=== PATIENT | female | born 1990 | race Caucasian/White ===

== ENCOUNTER 2020-01-19 19:29 | Emergency (ER) | payer OTHER ==
[~2020-01-19] VITALS: Ht 162.6 cm; Wt 106.6 kg
[~2020-01-19 19:29] MED LIST: [UNRECOGNIZED DRUG - OTHER] PO
--- OUTSIDE RECORDS SUMMARY | 2020-01-19 19:31 | XMS REPORT ---
Author Author [facility] Organization [facility] Address Unknown Phone Unavailable Care Team Providers Care Maintenance Clerk Name Role Phone Unavailable Unavailable Problems This patient has no known problems. Allergies, Adverse Reactions, Alerts This patient has no known allergies or adverse reactions. Medications This patient has no known medications. Results Test Description Test Time Test Comments Text Results Atomic Results Result Comments BREAST ULTRASOUND LEFT 2019-03-22 08:17:57 - DOLORES AST ULTRASOUND LEFTULTRASOUND OF LEFT BREAST AND LEFT AXILLA: 03/22/2019CLINICAL: Left breast lump. No prior exams were available for comparison. Color flow, real-time, and Doppler ultrasound of the left breast and axilla were performed. Ford scale images of the real-time examination were reviewed. No abnormalities were seen sonographically in the left breast or the left axilla. IMPRESSION: NEGATIVE There is no sonographic evidence of malignancy. Begin screening mammography at age 40 per current ACR guidelines. Sabas Reyes M.D. et/:03/22/2019 08:17:57 Production Generalist: Yue GARCIA, [facility]-FWletter sent: BIRADS 1-2 Normal Ultrasound BI-RADS: 1 Negative
--- OUTSIDE RECORDS SUMMARY | 2020-01-19 19:31 | XMS REPORT | Clinical Summary ---
Author Author [facility] Organization [facility] Address Unknown Phone Unavailable Care Team Providers Care Atlassian Administrator Name Role Phone Chema [place] MD PCP Allergies Comments Active Allergy Reactions Severity Noted Date No Known Drug Allergies 07/28/2017 Medications End Date Status Medication Sig Dispensed Refills Start Date Active cholecalciferol, vitamin Take 2,000 0 D3, (VITAMIN D3) 2,000 Units by unit capsule capsule mouth daily. Active liothyronine (CYTOMEL) 5 Take 5 mcg by 0 MCG tablet mouth daily. Active escitalopram (LEXAPRO) 10 0 //201 MG tablet 9 Active nitrofurantoin, 0 macrocrystal-monohydrate, 9 (MACROBID) 100 MG capsule 08/31/2020 Active norgestimate-ethinyl Take 1 tablet 28 tablet 11 estradiol (ORTHO by mouth 9 TRI-CYCLEN) daily. 0.18/0.215/0.25 mg-35 mcg (28) per tablet 09/01/2019 Discontinued folic acid 2.5 mg + B6 25 Take 1 tablet 0 mg + B12 2 mg (FOLBIC) by mouth 2.5-25-2 mg tablet daily. Active Problems No known active problems Encounters Care Team Description Date Type Specialty Joana Carlos MA 10/13/2019 Telephone Obstetrics and Gyne cology Unique Gallagher MA 09/01/2019 Refill Obstetrics and Gyne cology Sierra Sexton MD 07/13/2019 Telephone Obstetrics and Gyne cology Pastora Waters MA 07/11/2019 Telephone Obstetrics and Gyne cology Sierra Sexton MD 07/11/2019 Telephone Obstetrics and Gyne cology Sierra Sexton MD Cervical smear, as part of routine gynec ological examination (Primary Dx); Screening for STDs (sexually transmitted diseases) 06/29/2019 Office Visit Obstetrics and Gyne cology after 01/18/2019 Immunizations Name Administration Dates Next Due HPV Quadrivalent 05/14/2009, 02/12/2008, 09/2007 Family History Medical History Relation Name Comments Breast cancer Maternal Aunt Relation Name Status Comments Maternal Aunt Social History Date Tobacco Use Types Packs/Day Years Used Never Smoker Smokeless Tobacco: Never Used Drinks/Week oz/Week Comments Alcohol Use social Yes Sex Assigned at Date Recorded Not on file Industry Job Start Date Occupation Not on file Not on file Not on file Travel End Travel History Travel Start No recent travel history available. Last Filed Vital Signs Reading Time Taken Comments Vital Sign 124/86 06/29/2019 8:30 AM CDT Blood Pressure 88 06/29/2019 8:30 AM CDT Pulse - - Temperature - - Respiratory Rate - - Oxygen Saturation - - Inhaled Oxygen Concentration 103 kg (226 lb) 06/29/2019 8:30 AM CDT Weight 162.6 cm (5' 4") 06/29/2019 8:30 AM CDT Height 38.79 06/29/2019 8:30 AM CDT Body Mass Index Plan of Treatment Health Maintenance Due Date Last Done Comments INFLUENZA VACCINE 04/13/2020 CERVICAL CANCER SCREENING 06/29/2022 06/29/2019, 05/17/2018, 05/06/2017 Procedures Comments Procedure Name Priority Date/Time Associated Diag nosis HIV 1/2 ANTIGEN/ANTIBODY, Routine 06/29/2019 FOURTH GENERATION W/RFL 9:17 AM CDT (REFLEX [facility]) HEPATITIS B SURFACE Routine 06/29/2019 Screening for STDs ANTIGEN 9:17 AM CDT (sexually transmitt ed diseases) HEPATITIS C ANTIBODY Routine 06/29/2019 Screening for STDs 9:17 AM CDT (sexually transmitted diseases) RPR SCREEN Routine 06/29/2019 Screening for S TDs 9:17 AM CDT (sexually transmitted diseases) HPV MRNA E6/E7 Routine 06/29/2019 9:12 AM CDT CHLAMYDIA/N. GONORRHOEAE Routine 06/29/2019 RNA, TMA 9:12 AM CDT THINPREP TIS PAP REFLEX Routine 06/29/2019 HPV MRNA E6/E7 9:12 AM CDT after 01/18/2019 Results * HIV 1/2 ANTIGEN/ANTIBODY, FOURTH GENERATION W/RFL (REFLEX [facility]) (06/29/2019 9:17 AM CDT) HIV AG/AB 4th NON-REACTIVE NON-REACTIVE [facility] gen Comment: DIAGNOSTICS HIV-1 antigen and HIV-1/HIV-2 DECATUR antibodies were not detected. There is no laboratory evidence of HIV infection. PLEASE NOTE: This information has been disclosed to you from records whose confidentiality may be protected by state law. If your state requires such protection, then the state law prohibits you from making any further disclosure of the information without the specific written consent of the person to whom it pertains, or as otherwise permitted by law. A general authorization for the release of medical or other information is NOT sufficient for this purpose. For additional information please refer to http://education.Vatler.com/faq/EJC494 (This link is being provided for informational/ educational purposes only.) The performance of this assay has not been clinically validated in patients less than 2 years old. Specimen Narrative Performed At FASTING:YES [facility] AN UPDATE OR CORRECTION HAS BEEN MADE T O FASTING: YES Resulting Agency Comment Performing Organization Information: Site ID: [id number] [facility]: [facility] Address: [address] [place] [phone] Director: Nemesio Dockery Performing Organization Address City/State/[facility] one Number [facility] [address] [address] * Hepatitis C antibody (06/29/2019 9:17 AM CDT) Hepatitis C Ab NON-REACTIVE NON-REACTIVE [employer] [place] Signal/cutoff 0.04 <1.00 [facility] Comment: DIAGNOSTICS HCV antibody was non-reactive. DECATUR There is no laboratory evidence of HCV infection. In most cases, no further action is required. However, if recent HCV exposure is suspected, a test for HCV RNA (test code 65871) is suggested. For additional information please refer to http://education.Vatler.com/faq/AAE90l2 (This link is being provided for informational/ educational purposes only.) Specimen Blood Narrative Performed At FASTING:YES [facility] AN UPDATE OR CORRECTION HAS BEEN MADE T O FASTING: YES Resulting Agency Comment Performing Organization Information: Site ID: [id number] Name: [facility] Address: [address] [place], [place] [id number] Director: Nemesio Dockery Performing Organization Address [facility] one Number [facility] [email or web address] [place] [address] * RPR screen (06/29/2019 9:17 AM CDT) Pathologist [facility] RPR (monitor) NON-REACTIVE NON-REACTIVE [facility] w/refl titer DIAGNOSTICS DECATUR Specimen Blood Narrative Performed At FASTING:YES [facility] AN UPDATE OR CORRECTION HAS BEEN MADE T O FASTING: YES Resulting Agency Comment Performing Organization Information: Site ID: [id number] Name: [facility] Address: [address] [place] [address] Director: Nemesio Dockery Performing Organization Address [facility] one Number [facility] [employer] [place] [address] * Hepatitis B surface antigen (06/29/2019 9:17 AM CDT) Pathologist [facility] Hepatitis B NON-REACTIVE NON-REACTIVE [facility] surface Ag DIAGNOSTICS [place] Specimen Blood Narrative Performed At FASTING:YES [facility] AN UPDATE OR CORRECTION HAS BEEN MADE T O FASTING: YES Resulting Agency Comment Performing Organization Information: Site ID: [id number] Name: [facility] Address: [address] [place] [phone] Director: Nemesio Dockery Performing Organization Address [facility] one Number [facility] [employer] [place] [address] * HPV mRNA E6/E7 (06/29/2019 9:12 AM CDT) Pathologist [facility] HPV mRNA e6/e7 Detected (A) Not Detected [facility] Comment: DIAGNOSTICS-DYLAN This test was performed using ING II the APTIMA HPV Assay ([employer] This assay detects E6/E7 viral messenger RNA (mRNA) from 14 high-risk HPV types (16,18,31,33,35,39,45,51,52,56 ,58,59,66,68). The analytical performance characteristics of this assay have been determined by [facility]. The modifications have not been cleared or approved by the FDA. This assay has been validated pursuant to the CLIA regulations and is used for clinical purposes. Specimen Resulting Agency Comment Performing Organization Information: Site ID: [id number] [facility]: [facility] Address: [address] [place] [phone] Director: Dr. Nemesio Dockery Performing Organization Address [facility] one Number [email or web address] [address] II * CHLAMYDIA/N. GONORRHOEAE RNA, TMA (06/29/2019 9:12 AM CDT) Chlamydia NOT DETECTED NOT DETECTED [facility] trachomatis DIAGNOSTICS-DYLAN RNA, TMA ING II Neisseria NOT DETECTED NOT DETECTED [facility] gonorrhoeae DIAGNOSTICS-DYLAN RNA, TMA ING II (Always Comment: [facility] message) This test was performed using Moodswing TICS-DYLAN the APTIMA COMBO2 Assay ING II ([employer] The analytical performance characteristics of this assay, when used to test SurePath specimens have been determined by [facility]. Specimen Resulting Agency Comment Performing Organization Information: Site ID: [id number] [facility]: [facility] Address: [address] [place] [phone] Director: Dr. Nemesio Dockery Performing Organization Address [facility] one Number [email or web address] [address] II * THINPREP TIS PAP REFLEX HPV mRNA E6/E7 (06/29/2019 9:12 AM CDT) Clinical None given [facility] information Date of last NONE GIVEN [facility] menstrual period Prev. pap: NONE GIVEN [facility] Prev. bx: NONE GIVEN [facility] Source None given [facility] Statement of Comment: [facility] adequacy Satisfactory for evaluation . Endocervical/transformation zone component present. Age and/or menstrual status not provided General (A)Comment: EPITHELIAL CELL [facility] categorization ABNORMALITY Interpretation/ (A) [facility] result: Comment: Atypical Squamous Cells of Undetermined Significance (ASC-US) Comment Comment: TORI This Pap test has been evaluated with computer assisted technology. Suggest clinical correlation and follow-up as clinically appropriate Cytotechnologis Comment: TORI verónica AMT, CT(ASCP) CT screening location: [place] [address] [address], [facility] [address] Pathologist Comment: TORI Ha Pablo M.D. Board Certified in Anatomic and Clinical Pathology [phone] (electronic signature) Comment Comment: TORI EXPLANATORY NOTE: The Pap is a screening test for cervical cancer. It is not a diagnostic test and is subject to false negative and false positive results. It is most reliable when a satisfactory sample, regularly obtained, is submitted with relevant clinical findings and history, and when the Pap result is evaluated along with historic and current clinical information. Specimen Resulting Agency Comment Performing Organization Information: Site ID: [id number] Name: [facility] Address: [address] [place] [address], [address] [place] [address] Director: Rika Forte MD,PhD Performing Organization Address City/State/[facility] Ph one Number [facility] after 01/18/2019 Insurance Type Payer Benefit Subscriber ID Effective Phone Address Plan / Dates Group PPO CIGNA CIGNA PPO xxxxxxxxxxx 2017-P radha (Work) Advance Directives For more information, please contact: [phone] Patient Massage Coordinator Explanation Type Date Recorded Advance Directives, Living Will and Medical Power of Director [facility]
--- OUTSIDE RECORDS SUMMARY | 2020-01-19 19:32 | XMS REPORT | Summary of Care ---
Author Author [facility] - Health Organization [facility] - Health Address Unknown Phone Unavailable Care Team Providers Care Electrical Development Engineer Name Role Phone Chema Daven[place] PCP Encounter Details Care Team Description Date Type Department Tami Phillips, CLINICAL RESEARCHER [address] [place] [address] 10/24/2019 Letter (Out) [facility]-Emergency Depar tment [address] [place] [address] Allergies No Known Allergiesdocumented as of this encounter (statuses as of 10/24/2019) Medications End Date Status Medication Sig Dispensed Refills Start Date 10/29/2019 Active naproxen 500 mg Take 1 tablet 14 tablet 0 10/22/19 2 tabletIndications: Strep by mouth 2 0 pharyngitis (two) times daily with meals for 7 days. documented as of this encounter (statuses as of 10/24/2019) Active Problems Not on filedocumented as of this encounter (statuses as of 10/24/2019) Social History Date Tobacco Use Types Packs/Day Years Used Never Assessed Sex Assigned at Date Recorded Not on file Industry Job Start Date Occupation Not on file Not on file Not on file Travel End Travel History Travel Start No recent travel history available. documented as of this encounter Last Filed Vital Signs Not on filedocumented in this encounter Plan of Treatment Health Maintenance Due Date Last Done Comments VARICELLA VACCINES (1 of 1993 2 - 2-dose childhood series) DTaP,Tdap,and Td Vaccines 2003 (1 - Tdap) PAP SMEAR 2013 INFLUENZA VACCINE (#1) 2019 PNEUMOCOCCAL 0-64 YEARS Aged Out No longer elig ible based COMBINED SERIES on patient's age to complete this topic documented as of this encounter Results Not on filedocumented in this encounter Insurance Type Payer Benefit Subscriber ID Effective Phone Address Plan / Dates Group HMO/PPO/POS [place] [id number] 2019-P GENERIC resent documented as of this encounter
--- OUTSIDE RECORDS SUMMARY | 2020-01-19 19:32 | XMS REPORT | Summary of Care ---
Author Author [facility] - Health Organization [facility] - Health Address Unknown Phone Unavailable Care Team Providers Care Private Client Advisor Name Role Phone Chema Davenport PCP Reason for Visit * Reason Comments Sore Throat * Auth/Cert Referred By Contact Referred To Contact Status Reason Specialty Diagnoses / Procedures [facility] Emergency Dept [address] [place] [address] Emergency Medicine Encounter Details Care Team Description Date Type Department Tami Phillips FNP [address] [place] [address] Sore throat (Primary Dx); Strep pharyngitis 10/22/[address] [facility]-Emergency Depar tment [address] [place] [address] Allergies No Known Allergiesdocumented as of this encounter (statuses as of 10/22/2019) Medications End Date Status Medication Sig Dispensed Refills Start Date 10/29/2019 Active naproxen 500 mg Take 1 tablet 14 tablet 0 10/22/19 2 tabletIndications: Strep by mouth 2 0 pharyngitis (two) times daily with meals for 7 days. documented as of this encounter (statuses as of 10/22/2019) Active Problems Not on filedocumented as of this encounter (statuses as of 10/22/2019) Social History Date Tobacco Use Types Packs/Day Years Used Never Assessed Sex Assigned at Date Recorded Not on file Industry Job Start Date Occupation Not on file Not on file Not on file Travel End Travel History Travel Start No recent travel history available. 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 Sore throat J02.9 462 2. Strep pharyngitis J02.0 034.0 NO LIFE-THREATENING FINDINGS ON TODAY'S EXAM. YOUR PRESCRIPTIONS : Medication List START taking these medications naproxen 500 mg tablet Commonly known as: NAPROSYN Take 1 tablet by mouth 2 (two) times daily with meals for 7 days. Where to Get Your Medications You can get these medications from any pharmacy Bring a paper prescription for each of these medications naproxen 500 mg tablet ER precautions and follow up : 1. Return to ER if your symptoms should worsen or fail to improve within 72 luis rs. 2. The care provided in the emergency room was for acute problems only. 3. You should follow up with your primary care provider within 72 hours. 4. Fill and take all your medications as prescribed. 5. Make sure you are staying adequately hydrated. Busque attencion immediatamente si usted tiene los sitomas sigue, vuelve peor o si hay sitomas nuevas o para cualquiera preoccupacion incluyendo dolor del pecho , falta aire, se siente debile, mas fievre, mas dolor, nausea, vomitando, sangra ndo que no es normal, confusion, baja or pierdas conciencia. FOLLOW-UP RECOMMENDATIONS: RECOMMEND FOLLOW-UP WITH A PRIMARY CARE PROVIDER OR SPECIALIST IN 2-5 DAYS, DAWN CIALLY IF NO IMPROVEMENT IN SYMPTOMS. MAY FOLLOW-UP WITH A PROVIDER OF YOUR CHOICE, SUCH : 1. A PHYSICIAN OF YOUR CHOICE 2. [facility], . LOCATIONS IN [facility] 3. [facility], [address] [place], [place]; [phone] 1 OR, IF YOU WISH TO FOLLOW-UP WITHIN THE [facility], MAY TRY THESE OP TIONS (CLINIC APPOINTMENTS AVAILABLE ON UNDP-RM-SYCU BASIS): 1. SCHEDULE AN APPOINTMENT ONLINE AT WWW.[facility] 2. OR CALL THE [facility] ACCESS CENTER AT OR 3. OR CALL YOUR [facility] PHYSICIAN'S OFFICE DIRECTLY IF YOU ARE ALREADY AN ESTABLISH ED [facility] PATIENT. 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 CULTURE LAB STAT Sore throat Order Schedule Name Type Priority Associated Diag noses ONCE for 1 Occurrences starting 10/22/19 20 until 10/22/2019 THROAT CULTURE LAB Routine Sore throat Health Maintenance Due Date Last Done Comments VARICELLA VACCINES (1 of 1993 2 - 2-dose childhood series) DTaP,Tdap,and Td Vaccines 2003 (1 - Tdap) PAP SMEAR 2013 INFLUENZA VACCINE (#1) 2019 PNEUMOCOCCAL 0-64 YEARS Aged Out No longer elig ible based COMBINED SERIES on patient's age to complete this topic documented as of this encounter Procedures Comments Procedure Name Priority Date/Time Associated Diag nosis POCT TEST SAMANTHA 10/22/2019 Sore throa t 9:37 AM 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 ADC,CLC OR LCC ONLY - STAT 10/22/2019 Sore thr oat INFLUENZA A & B DIRECT 9:13 AM 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 ANTIGEN RAPID STREP SCREEN FOR STAT 10/22/2019 Sore th roat GROUP A 9:13 AM 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 documented in this encounter Results * POCT TEST (10/22/2019 9:37 AM 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) POCT PREG neg On board visible controls acceptable with C Line POCT PREG LOT # [id number] POCT PREG TEST apr 2021 DATE Specimen Urine - URINE, CLEAN CATCH * ADC,CLC OR LCC ONLY - INFLUENZA A & B DIRECT ANTIGEN (10/22/2019 9:13 AM 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) Influenza A Negative Negative [facility] Influenza B Negative Negative [facility] Specimen Swab - NARE, LEFT SIDE Performing Organization Address [facility] Ph one Number [facility] CLIA: [id number], [facility] [place], [place] [address] [facility] * RAPID STREP SCREEN FOR GROUP A (10/22/2019 9:13 AM 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) Streptococcus Negative Negative [facility] pyogenes (group [facility] A) antigen [facility] Specimen Swab - THROAT Performing Organization Address [facility] Ph one Number [facility] CLIA: [id number], [address] [place], [place] [address] [facility] documented in this encounter Visit Diagnoses Diagnosis Sore throat - Primary Acute pharyngitis Strep pharyngitis Streptococcal sore throat documented in this encounter Administered Medications Action Date Dose Rate Site Medication Order MAR Action 10/22/2019 9:48 AM 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 10 mg Right Do rsogluteal-IM dexamethasone (DECADRON PHOSPHATE) Given injection 10 mg 10 mg, Oral, ONCE, 1 dose, 10/22/19 a t 1030, Routine 10/22/2019 9:48 AM 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 800 mg ibuprofen (IBU) tablet 800 mg Given 800 mg, Oral, ONCE, 1 dose, 10/22/19 at 1030, SAMANTHA 10/22/2019 9:48 AM 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 1.2 Million Units Left D orsogluteal-IM penicillin g benzathine (BICILLIN L-A) Given injection 1.2 Million Units 1.2 Million Units, Intramuscular, ONCE, 1 dose, 10/22/19 at 1030, SAMANTHA, Reaso n for Anti-Infective: Documented Infection, Documented Infection Site: HEENT, Duration of Therapy: 7 days documented in this encounter Insurance Type Payer Benefit Subscriber ID Effective Phone Address Plan / Dates Group HMO/PPO/POS [place] [id number] 2019-P GENERIC resent documented as of this encounter
[2020-01-19] MEDS ORDERED: ACETAMINOPHEN 325 MG TAB PO STA (19:58)
[2020-01-19] MEDS ORDERED: SODIUM CHLORIDE 0.9% 1000ML 1,000 ML IV STA (19:58)
[2020-01-19] MEDS ORDERED: CEFEPIME HCL 1 GM VIAL IV STA (20:04)
[2020-01-19] MEDS ORDERED: CEFEPIME 1GM/NS 0.9% 50 ML 50 ML IV ONE ×2 (20:15)
[2020-01-19 20:28] LABS: BILIRUBIN,URINE NEGATIVE (NEGATIVE); CLARITY,URINE SL CLOUDY (CLEAR); COLOR,URINE YELLOW (YELLOW); KETONES,URINE NEGATIVE (NEGATIVE); LEUKOCYTE ESTERASE ,URINE NEGATIVE (NEGATIVE); NITRITE,URINE NEGATIVE (NEGATIVE); PROTEIN,URINE DIPSTICK 1+ (NEGATIVE); URINE UROBILINOGEN 0.2 mg/dL (0.2 - 1)
[2020-01-19 20:29] LABS: PREGNANCY TEST, URINE NEGATIVE (NEGATIVE)
[2020-01-19 20:36] LABS: BASOPHILS % 0.5 % (0.0-1.0); EOSINOPHILS # (AUTO) 0.1 (0.0-0.4); EOSINOPHILS % 1.1 % (0.0-6.0); HEMATOCRIT 36.9 % (34.2-44.1); HEMOGLOBIN 11.6 g/dL (12.0-16.0); LYMPHOCYTES # (AUTO) 1.9 (1.0-3.2); MEAN CORPUSCULAR HGB CONC 31.4 g/dL (31-35); MONOCYTES # (AUTO) 0.7 (0.2-0.8); MONOCYTES % 10.9 % (4.4-11.3); NEUTROPHILS # (AUTO) 3.5 (2.1-6.9); NEUTROPHILS % 56.3 % (38.7-80.0); PLATELET COUNT 288 x10e3/uL (140-360); RED BLOOD COUNT 4.29 x10e6/uL (3.6-5.1); RED CELL DISTRIBUTION WIDTH 12.9 % (11.7-14.4)
[2020-01-19 20:43] LABS: EPITHELIAL CELLS,URINE FEW /LPF; WBC,URINE (MAN) 0-5 /HPF (0-5)
[2020-01-19 20:55] LABS: ALANINE AMINOTRANSFERASE 15 IU/L (0-55); ALBUMIN 3.3 g/dL (3.5-5.0); ALBUMIN/GLOBULIN RATIO 0.7 (0.8-2.0); ALKALINE PHOSPHATASE 98 IU/L (40-150); ANION GAP 12.7 mmol/L (8-16); BLOOD UREA NITROGEN 6 mg/dL (7-26); BUN/CREATININE RATIO 9 (6-25); CARBON DIOXIDE 26 mmol/L (22-29); CHLORIDE 103 mmol/L (98-107); EST GLOMERULAR FILTRATION RATE > 60 ML/MIN (60-); GLUCOSE 97 mg/dL (74-118); LIPASE 18 U/L (8-78); POTASSIUM 3.7 mmol/L (3.5-5.1); SODIUM 138 mmol/L (136-145)
[2020-01-19] MEDS ORDERED: IOPAMIDOL 370 MG/ML 200 ML INFUS..BTL INJ ONE (21:21)
[2020-01-19] MEDS ORDERED: SODIUM CHLORIDE 0.9% 50ML 50 ML ONE (21:21)
--- NOTE | 2020-01-19 22:29 | Diagnostic Imaging Report ---
EXAM: CT Abdomen and Pelvis WITH contrast INDICATION: Urinary tract infection, abdominal pain COMPARISON: None. TECHNIQUE: Abdomen and pelvis were scanned utilizing a multidetector helical scanner from the lung base to the pubic symphysis after administration of IV contrast. Coronal and sagittal reformations were obtained. Routine protocol was performed. Scan was performed when during portal venous phase. IV CONTRAST: 100 mL of Isovue 370 ORAL CONTRAST: None COMPLICATIONS: None RADIATION DOSE: Total DLP: 913 . mGy*cm Estimated effective dose: (DLP x 0.015 x size factor) mSv CTDIvol has been reviewed. It is below the limits set by the Radiation Protocol Committee (RPC). Dose modulation, iterative reconstruction, and/or weight based adjustment of the mA/kV was utilized to reduce the radiation dose to as low as reasonably achievable. FINDINGS: LINES and TUBES: None. LOWER THORAX: Unremarkable HEPATOBILIARY: hepatomegaly with hepatic steatosis . Fatty infiltration around the gallbladder fossa. No focal hepatic lesions. No biliary ductal dilation. GALLBLADDER: No radio-opaque stones or sludge. No wall thickening. SPLEEN: No splenomegaly. PANCREAS: No focal masses or ductal dilatation. ADRENALS: No adrenal nodules KIDNEYS/URETERS: Kidneys enhance symmetrically. No hydronephrosis. No cystic or solid mass lesions. No stones. GI TRACT: No abnormal distention, wall thickening, or evidence of bowel obstruction. Appendix is normal. PELVIC ORGANS/BLADDER: Unremarkable. LYMPH NODES: No lymphadenopathy. VESSELS: Unremarkable. PERITONEUM / RETROPERITONEUM: No free air or fluid. BONES: Unremarkable. SOFT TISSUES: Unremarkable. IMPRESSION: Hepatomegaly with hepatic steatosis Signed by: Dat Lam DO on 01/19/2020 10:25 PM
[2020-01-19] MEDS ORDERED: AZITHROMYCIN 250 MG TAB PO STA (23:05)
[2020-01-19] MEDS ORDERED: METRONIDAZOLE500 MG PO (23:22)
[2020-01-19] MEDS ORDERED: MOTRIN800 MG PO (23:22)
[2020-01-19] MEDS ORDERED: DOXYCYCLINE HY100 MG PO (23:22)
== END 2020-01-19 23:50 | disposition home or self-care (01) ==
LOC: ER 19:29
DX: R50.9 Fever, unspecified (principal); R10.9 Unspecified abdominal pain; N89.8 Other specified noninflammatory disorders of vagina
CPT/HCPCS: 36415; 74177; 80053; 81001; 81025; 83605; 83690; 85025; 87040; 87086; 87491; 87591; 99284; J0692; J7030; Q9967